=== PATIENT | female | born 1955 | race Caucasian/White ===

== ENCOUNTER 2020-12-07 14:44 | Emergency (ER) | payer BC ==
[~2020-12-07] VITALS: Ht 152.4 cm; Wt 71.2 kg
== END 2020-12-07 16:19 | disposition home or self-care (01) ==
LOC: ER 14:44
DX: S80.211A Abrasion, right knee, initial encounter (principal); X58.XXXA Exposure to other specified factors, initial encounter; Y93.89 Activity, other specified; Y92.010 Kitchen of single-family (private) house as the place of occurrence of the external cause